=== PATIENT | male | born 1970 | race African-American/Black ===

== ENCOUNTER 2021-08-22 12:30 | Emergency (ER) | payer MEDICAID ==
[~2021-08-22] VITALS: Ht 152.4 cm; Wt 107.0 kg
[2021-08-22] MEDS ORDERED: ACETAMINOPHEN WITH CODEINE 300/30MG TABLET PO STA (13:17)
[2021-08-22 13:53] LABS: BASOPHILS % 0.7 % (0.0-2.0); EOSINOPHILS % 5.2 % (0.0-5.0); LYMPHOCYTES % 25.5 % (20.0-50.0); MEAN PLATELET VOLUME 8.3 fl (7.4-10.4); NEUTROPHILS % 63.6 % (40.0-76.0); PLATELET 260 x1000/uL (130-400); RED BLOOD CELL COUNT 4.48 mill/uL (4.7-6.1); RED CELL DISTRIBUTION WIDTH 14.9 % (11.6-14.6)
[2021-08-22 13:59] LABS: CHLORIDE 108 mEq/L (98-107)
[2021-08-22 14:57] LABS: CLARITY URINE CLOUDY (CLEAR); COLOR URINE YELLOW (YELLOW); KETONES URINE NEGATIVE (NEGATIVE); LEUKOCYTE ESTERASE URINE NEGATIVE (NEGATIVE); NITRITE URINE NEGATIVE (NEGATIVE); OCCULT BLOOD URINE NEGATIVE (NEGATIVE); PROTEIN URINE NEGATIVE (NEGATIVE); SPECIFIC GRAVITY URINE 1.019 (1.005-1.030)
[2021-08-22] MEDS ORDERED: TOPUD PO (15:39)
[2021-08-22 16:00] VITALS: BP 164/87
== END 2021-08-22 16:45 | disposition home or self-care (01) ==
LOC: ER 12:30
DX: N50.812 Left testicular pain (principal); I10 Essential (primary) hypertension
CPT/HCPCS: 36415; 76870; 80053; 81003; 85025; 93976; 99284; Z7610